=== PATIENT | male | born 1940 | race Caucasian/White ===

== ENCOUNTER → 2019-04-08 | Outpatient (CLI) | payer OTHER ==
[~2019-04-08] MED LIST: ABAT250V; AMLO10 PO; Aspir 8181 MG PO; CENTRUM SILVER1 EAC4 PO; FISH1000 PO; Folic Acid-Vit1 EACH PO; LISI20; Lutein6 MG PO
[2019-04-09 14:58] LABS: Stool Occult Bld Immuno 1 Negative (NEGATIVE)
== END | disposition home or self-care (01) ==
LOC: LAB SHORT 13:08 → LAB SRC 13:08
PROVIDERS: Internal Medicine Gastroenterology
DX: Z80.0 Family history of malignant neoplasm of digestive organs (principal)
CPT/HCPCS: 82274

== ENCOUNTER 2019-12-12 03:03 | Inpatient (IN) | payer OTHER ==
[~2019-12-12] VITALS: Ht 177.8 cm; Wt 104.3 kg
[2019-12-12 04:20] LABS: Alanine Aminotransfer (ALT/SGP 35 U/L (12-78); Albumin, Blood 3.6 g/dL (3.4-5.0); Albumin/Globulin Ratio 1.1 (0.8-1.8); Alk Phos 68 U/L (50-136); Anion Gap 8 mmol/L (6-16); Aspartate Aminotrans (AST/SGOT 18 U/L (12-37); Bilirubin, Total 0.5 mg/dL (0.1-1.0); Blood Urea Nitrogen 13 mg/dL (8-24); CO2, Blood 22 mmol/L (21-32); Calcium, Blood 8.5 mg/dL (8.5-10.1); Chloride, Blood 105 mmol/L (98-108); Creatinine, Blood 0.87 mg/dL (0.60-1.20); Globulin, Blood 3.4 g/dL (2.2-4.0); Glomerular Filtration Rate >60 (60-); Glucose, Blood 105 mg/dL (70-99); Potassium, Blood 4.3 mmol/L (3.5-5.5); Sodium, Blood 135 mmol/L (136-145); Troponin I <0.015 ng/mL (0.000-0.040)
[2019-12-12 04:29] LABS: Hematocrit 47.3 % (37.0-53.0); Hemoglobin 16.3 g/dL (13.5-17.5); Mean Corpuscular HGB 29.9 pg (26.0-34.0); Mean Corpuscular HGB Conc 34.5 g/dL (31.5-36.5); Mean Corpuscular Volume 87 fL (80-100); Mean Platelet Volume 9.7 fL (9.1-12.4); Platelet Count 129 K/mm3 (150-400); RDW Coefficient Variation 13.2 % (11.7-14.2); RDW Standard Deviation 41.7 fL (35.1-46.3); Red Blood Cell Count 5.46 M/mm3 (4.30-5.90); White Blood Cell Count 17.68 K/mm3 (4.00-11.30)
[2019-12-12 05:08] LABS: BAND PERCENT MAN 15 % (0-8); BASOPHILS PERCENT MAN 0 % (0-2); EOSINOPHILS PERCENT MAN 0 % (0-6); LYMPHOCYTES ABSOLUTE MAN 0.17 K/mm3 (0.84-5.20); LYMPHOCYTES PERCENT MAN 1 % (21-46); MONOCYTES PERCENT MAN 4 % (4-13); NEUTROPHILS ABSOLUTE MAN 16.79 K/mm3 (1.96-9.15); SEG NEUTROPHILS PERCENT MAN 80 % (41-73); TOTAL CELLS COUNTED 100
[2019-12-12] MEDS ORDERED: CLOP75 PO (08:57)
[2019-12-12] MEDS ORDERED: Crestor40 MG PO (08:58)
[2019-12-12] MEDS ORDERED: IRBE150 PO (08:59)
[2019-12-12] MEDS ORDERED: Lutein6 MG PO (09:01)
[2019-12-12] MEDS ORDERED: [UNRECOGNIZED DRUG - OTHER] PO (09:02)
[2019-12-12] MEDS ORDERED: CENTRUM SILVER1 EAC2 PO (09:02)
--- NOTE | 2019-12-12 16:42 | NUR ---
Shift summary Patient has denied pain. Patient has been 93-97% on room air today. Patient denies shortness of breath or chest pain. Patient having loose stools. Hat placed in toilet to collect sample. Awaiting COVID result. Patient is independent in the room. Patient tolerating regular diet. Call light within patient reach.
[2019-12-12 22:37] LABS: Adenovirus F 40/41 Not Detected (NOT DETECT); Astrovirus Not Detected (NOT DETECT); Campylobacter Sp Not Detected (NOT DETECT); Cryptosporidium Not Detected (NOT DETECT); Cyclospora Cayetanensis Not Detected (NOT DETECT); E. Coli O157 Not Detected (NOT DETECT); Entamoeba Histolytica Not Detected (NOT DETECT); Enteroaggregative E. coli-EAEC Not Detected (NOT DETECT); Enteropathogenic E. coli-EPEC Not Detected (NOT DETECT); Enterotoxigenic E. coli-ETEC Not Detected (NOT DETECT); Giardia Lamblia Not Detected (NOT DETECT); Norovirus GI/GII Not Detected (NOT DETECT); Plesiomonas Shigelloides Not Detected (NOT DETECT); Rotavirus A Not Detected (NOT DETECT); Salmonella Sp Not Detected (NOT DETECT); Sapovirus Not Detected (NOT DETECT); Shiga Toxin-prod E. coli-STEC Not Detected (NOT DETECT); Shigella/Enteroin E. coli-EIEC Not Detected (NOT DETECT); Vibrio Cholerae Not Detected (NOT DETECT); Vibrio Sp Not Detected (NOT DETECT); Yersinia Enterocolitica Not Detected (NOT DETECT)
--- NOTE | 2019-12-13 04:30 | NUR ---
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
[2019-12-13 05:01] LABS: BASOPHILS ABSOLUTE AUTO 0.01 K/mm3 (0.00-0.23); BASOPHILS PERCENT AUTO 0 % (0-2); EOSINOPHILS ABSOLUTE AUTO 0.05 K/mm3 (0.00-0.68); EOSINOPHILS PERCENT AUTO 0 % (0-6); Hematocrit 42.9 % (37.0-53.0); Hemoglobin 14.5 g/dL (13.5-17.5); IMMATURE GRAN ABSOLUTE AUTO 0.05 K/mm3 (0.00-0.10); IMMATURE GRAN PERCENT AUTO 0 % (0-1); LYMPHOCYTES ABSOLUTE AUTO 0.72 K/mm3 (0.84-5.20); LYMPHOCYTES PERCENT AUTO 6 % (21-46); MONOCYTES ABSOLUTE AUTO 1.14 K/mm3 (0.16-1.47); MONOCYTES PERCENT AUTO 10 % (4-13); Mean Corpuscular HGB 29.6 pg (26.0-34.0); Mean Corpuscular HGB Conc 33.8 g/dL (31.5-36.5); Mean Corpuscular Volume 88 fL (80-100); Mean Platelet Volume 10.2 fL (9.1-12.4); NEUTROPHILS ABSOLUTE AUTO 9.54 K/mm3 (1.96-9.15); NEUTROPHILS PERCENT AUTO 83 % (41-73); Platelet Count 115 K/mm3 (150-400); RDW Coefficient Variation 13.3 % (11.7-14.2); RDW Standard Deviation 42.7 fL (35.1-46.3); White Blood Cell Count 11.51 K/mm3 (4.00-11.30)
[2019-12-13 05:28] LABS: Alanine Aminotransfer (ALT/SGP 26 U/L (12-78); Albumin/Globulin Ratio 0.9 (0.8-1.8); Alk Phos 52 U/L (50-136); Anion Gap 7 mmol/L (6-16); Aspartate Aminotrans (AST/SGOT 22 U/L (12-37); Bilirubin, Total 0.7 mg/dL (0.1-1.0); Blood Urea Nitrogen 11 mg/dL (8-24); Bun/Creatinine Ratio 12.8 (12.0-20.0); CO2, Blood 24 mmol/L (21-32); Calcium, Blood 8.3 mg/dL (8.5-10.1); Chloride, Blood 102 mmol/L (98-108); Creatinine, Blood 0.86 mg/dL (0.60-1.20); Globulin, Blood 3.4 g/dL (2.2-4.0); Glomerular Filtration Rate >60 (60-); Glucose, Blood 108 mg/dL (70-99); Potassium, Blood 3.9 mmol/L (3.5-5.5); Sodium, Blood 133 mmol/L (136-145); Total Protein, Blood 6.4 g/dL (6.4-8.2)
[2019-12-13] MEDS ORDERED: ALBU90OI INH (13:38)
[2019-12-13] MEDS ORDERED: CEFD300 PO (13:39)
[2019-12-13] MEDS ORDERED: AZIT500 PO (13:39)
--- NOTE | 2019-12-13 14:04 | NUR ---
Discharge summary Patient discharged to home. IV out. Prescriptions faxed to [facility]. Patient/spouse denied questions or concerns at discharge. Patient to follow up with PCP.
== END 2019-12-13 14:20 | disposition home or self-care (01) | DRG 871 ==
LOC: ER 03:03 → MEDS 06:40 → SURS 06:40
PROVIDERS: Emergency Medicine; ADMIT Internal Medicine
DX: A41.9 Sepsis, unspecified organism (principal); J18.9 Pneumonia, unspecified organism; J96.01 Acute respiratory failure with hypoxia; J44.1 Chronic obstructive pulmonary disease with (acute) exacerbation; J44.0 Chronic obstructive pulmonary disease with (acute) lower respiratory infection; I10 Essential (primary) hypertension; Z20.828 Contact with and (suspected) exposure to other viral communicable diseases; I25.2 Old myocardial infarction; Z95.1 Presence of aortocoronary bypass graft; Z79.82 Long term (current) use of aspirin; Z87.891 Personal history of nicotine dependence
CPT/HCPCS: 0097U; 36415; 71046; 80053; 83605; 83880; 84484; 85025; 87040; 93005; 93010; 94664; 94667; 94760; 96361; 96365; 98960; 99285-25; A9270; J0456; J0696; J1650; J1956; J7030; J7050; U0003

== ENCOUNTER 2020-10-16 15:46 | Inpatient (IN) | payer MEDICARE, OTHER ==
[~2020-10-16] VITALS: Ht 177.8 cm; Wt 97.5 kg
[~2020-10-16 15:46] MED LIST changes: +ALBU90OI INH; -AMLO10 PO; +AZIT500 PO; -Aspir 8181 MG PO; +CEFD300 PO; +CENTRUM SILVER1 EAC2 PO; +IRBE150 PO; +[UNRECOGNIZED DRUG - OTHER] PO
[2020-10-16 16:12] LABS: BASOPHILS ABSOLUTE AUTO 0.02 K/mm3 (0.00-0.23); BASOPHILS PERCENT AUTO 0 % (0-2); EOSINOPHILS ABSOLUTE AUTO 0.02 K/mm3 (0.00-0.68); EOSINOPHILS PERCENT AUTO 0 % (0-6); Hematocrit 47.4 % (37.0-53.0); Hemoglobin 16.4 g/dL (13.5-17.5); IMMATURE GRAN ABSOLUTE AUTO 0.08 K/mm3 (0.00-0.10); IMMATURE GRAN PERCENT AUTO 1 % (0-1); LYMPHOCYTES ABSOLUTE AUTO 0.48 K/mm3 (0.84-5.20); LYMPHOCYTES PERCENT AUTO 3 % (21-46); MONOCYTES PERCENT AUTO 1 % (4-13); Mean Corpuscular HGB 30.2 pg (26.0-34.0); Mean Corpuscular HGB Conc 34.6 g/dL (31.5-36.5); Mean Corpuscular Volume 87 fL (80-100); Mean Platelet Volume 9.8 fL (9.1-12.4); NEUTROPHILS ABSOLUTE AUTO 14.79 K/mm3 (1.96-9.15); NEUTROPHILS PERCENT AUTO 95 % (41-73); Platelet Count 154 K/mm3 (150-400); RDW Coefficient Variation 13.2 % (11.7-14.2); RDW Standard Deviation 42.4 fL (35.1-46.3); Red Blood Cell Count 5.43 M/mm3 (4.30-5.90); White Blood Cell Count 15.59 K/mm3 (4.00-11.30)
[2020-10-16 16:28] LABS: Alanine Aminotransfer (ALT/SGP 267 U/L (12-78); Albumin, Blood 4.1 g/dL (3.4-5.0); Albumin/Globulin Ratio 1.1 (0.8-1.8); Alk Phos 150 U/L (50-136); Anion Gap 9 mmol/L (6-16); Aspartate Aminotrans (AST/SGOT 308 U/L (12-37); Bilirubin, Total 2.3 mg/dL (0.1-1.0); Blood Urea Nitrogen 15 mg/dL (8-24); Bun/Creatinine Ratio 17.5 (12.0-20.0); CO2, Blood 24 mmol/L (21-32); Calcium, Blood 9.3 mg/dL (8.5-10.1); Chloride, Blood 94 mmol/L (98-108); Creatinine, Blood 0.86 mg/dL (0.60-1.20); Globulin, Blood 3.8 g/dL (2.2-4.0); Glomerular Filtration Rate >60 (60-); Glucose, Blood 145 mg/dL (70-99); Potassium, Blood 4.1 mmol/L (3.5-5.5); Sodium, Blood 127 mmol/L (136-145); Total Protein, Blood 7.9 g/dL (6.4-8.2)
[2020-10-16] MEDS ORDERED: MUPIROCIN (17:47)
[2020-10-16] MEDS ORDERED: FUROSEMIDE20 MG PO (17:47)
[2020-10-16] MEDS ORDERED: AMLO10 PO (17:47)
[2020-10-16] MEDS ORDERED: CLOP75 PO (17:47)
[2020-10-16] MEDS ORDERED: Crestor40 MG PO (17:48)
[2020-10-16] MEDS ORDERED: METFORMIN HCL500 M2 PO (17:48)
[2020-10-16] MEDS ORDERED: Aspir 8181 MG PO (17:49)
[2020-10-16] MEDS ORDERED: LOSA50 PO (17:49)
[2020-10-17 03:52] LABS: Hematocrit 39.1 % (37.0-53.0); Hemoglobin 13.9 g/dL (13.5-17.5); Mean Corpuscular HGB 30.5 pg (26.0-34.0); Mean Corpuscular HGB Conc 35.5 g/dL (31.5-36.5); Mean Corpuscular Volume 86 fL (80-100); Mean Platelet Volume 10.2 fL (9.1-12.4); Platelet Count 109 K/mm3 (150-400); RDW Coefficient Variation 13.4 % (11.7-14.2); Red Blood Cell Count 4.55 M/mm3 (4.30-5.90); White Blood Cell Count 28.96 K/mm3 (4.00-11.30)
[2020-10-17 04:12] LABS: Alanine Aminotransfer (ALT/SGP 506 U/L (12-78); Albumin, Blood 3.1 g/dL (3.4-5.0); Alk Phos 105 U/L (50-136); Anion Gap 9 mmol/L (6-16); Aspartate Aminotrans (AST/SGOT 421 U/L (12-37); Bilirubin, Total 4.9 mg/dL (0.1-1.0); Blood Urea Nitrogen 21 mg/dL (8-24); Bun/Creatinine Ratio 19.4 (12.0-20.0); CO2, Blood 22 mmol/L (21-32); Calcium, Blood 8.4 mg/dL (8.5-10.1); Chloride, Blood 98 mmol/L (98-108); Creatinine, Blood 1.08 mg/dL (0.60-1.20); Glomerular Filtration Rate >60 (60-); Glucose, Blood 112 mg/dL (70-99); Potassium, Blood 4.6 mmol/L (3.5-5.5); Sodium, Blood 129 mmol/L (136-145); Total Protein, Blood 6.1 g/dL (6.4-8.2)
[2020-10-17 04:14] LABS: BAND PERCENT MAN 19 % (0-8); BASOPHILS PERCENT MAN 0 % (0-2); EOSINOPHILS PERCENT MAN 0 % (0-6); LYMPHOCYTES ABSOLUTE MAN 0.57 K/mm3 (0.84-5.20); LYMPHOCYTES PERCENT MAN 2 % (21-46); MONOCYTES ABSOLUTE MAN 1.15 K/mm3 (0.16-1.47); MONOCYTES PERCENT MAN 4 % (4-13); NEUTROPHILS ABSOLUTE MAN 27.22 K/mm3 (1.96-9.15); SEG NEUTROPHILS PERCENT MAN 75 % (41-73); TOTAL CELLS COUNTED 100
--- NOTE | 2020-10-17 06:28 | NUR ---
SHIFT SUMMARY PT WAS A NEW ADMIT, ARRIVING ON THE FLOOR AT . HE IS A&O X 4, SBA IN THE ROOM. PT DENIED ANY ACUTE SOB, PAIN, OR NAUSEA. PT ON 2L OF O2 VIA NC, SATTING > 92%. PT TEMP WAS ELEVATED AT 100.1, MEDICATED WITH PRN TYLENOL. VITAL SIGNS OTHERWISE STABLE. PT RECEIVED 1L LR @ 100 ML/HR. LACTIC WAS CRITICAL AT 3.6. HOSPITALIST INFORMED, AND ADDITIONAL LACTIC CHECKED AT 0500. NO OTHER CHANGES IN ORDERS. PT HAD POSITIVE BLOOD CULTURES, GRAM - BACILLI. PT IS ON IV ROCEPHIN, WHICH PER PHARMACIST IS ADEQUATE COVERAGE. NO OTHER ACUTE CHANGES IN PT CONDITION NOTED. WILL CONTINUE TO MONITOR AND TREAT PER EMAR UNTIL HAND OFF TO DAY SHIFT RN.
--- NOTE | 2020-10-17 16:45 | NUR ---
PT AOX4 AND COOPERATIVE OF CARE. PT INDEPENDENT IN ROOM. PT STATED HE HAD A HEADACHE EARLIER IN THE SHIFT AND WAS TREATED PER EMAR. PT STATED THIS WAS EFFECTIVE. PT WANTED TO DISCHARGE AND DR BELTRE REVIEWED LABS AND PT WAS INFORMED HE NEEDED IV ANTIBOTICS. PT WAS OKAY WITH THIS HE WANTS THE TREATMENT HE NEEDS TO GET BETTER. PT HAS CALL LIGHT WITHIN REACH AND CALLS APPROPRIATELY. NO DISTRESS NOTED AT THIS TIME WILL CONTINUE TO MONITOR.
--- NOTE | 2020-10-18 05:36 | NUR ---
Alert and orientated, able to make needs known, call light within reach, patient is indendpent to restroom, slept throughout the night no events.
[2020-10-18] MEDS ORDERED: CEFP200 PO (16:14)
[2020-10-18] MEDS ORDERED: XARELTO10 M5 PO (16:14)
--- NOTE | 2020-10-18 17:34 | NUR ---
DISCHARGE SUMMARY PT DISCHARGE THIS SHIFT AT 1730. PT's DAUGHTER PRESENT DURING DISCHARGE PROCESS. PT AND FAMILY VERBALIZED UNDERSTANDING OF DISCHARGE ORDERS. NO COMPLAINTS OR ANY CONCERNS NOTED FROM PT, DENIES ANY PAIN OR DISCOMFORT PRIOR TO DISCHARGE. IV LINE DISCONTINUED PRIOR TO D/C. PT A&OX4, ABLE TO MAKE NEEDS KNOWN. DISCHARGE PAPERWORK GIVEN TO PATIENT UPON DISCHARGE.
== END 2020-10-18 17:32 | disposition home or self-care (01) | DRG 871 ==
LOC: ER 15:46 → MEDS 18:12
PROVIDERS: Emergency Medicine; Internal Medicine; ADMIT Internal Medicine
DX: A41.51 Sepsis due to Escherichia coli [E. coli] (principal); J18.9 Pneumonia, unspecified organism; J44.1 Chronic obstructive pulmonary disease with (acute) exacerbation; J44.0 Chronic obstructive pulmonary disease with (acute) lower respiratory infection; E87.2 Acidosis; E87.1 Hypo-osmolality and hyponatremia; D69.6 Thrombocytopenia, unspecified; R65.20 Severe sepsis without septic shock; I25.10 Atherosclerotic heart disease of native coronary artery without angina pectoris; R73.03 Prediabetes; I73.9 Peripheral vascular disease, unspecified; E78.5 Hyperlipidemia, unspecified; Q99.8 Other specified chromosome abnormalities; Z87.891 Personal history of nicotine dependence; Z90.49 Acquired absence of other specified parts of digestive tract; Z95.1 Presence of aortocoronary bypass graft; Z88.6 Allergy status to analgesic agent; Z79.82 Long term (current) use of aspirin; Z79.899 Other long term (current) drug therapy
CPT/HCPCS: 36415; 71045; 76705; 80053; 83605; 83690; 84145; 84484; 85025; 87040; 87077; 87186; 93005; 93010; 94667; 94760; 96361; 96365; 96366; 99285-25; A9270; G0480; J0696; J7030; J7120

== ENCOUNTER 2021-11-23 07:58 | Day surgery (SDC) | payer OTHER ==
[~2021-11-23] VITALS: Ht 177.8 cm; Wt 93.9 kg
[~2021-11-23 07:58] MED LIST changes: +AMLO10 PO; +Aspir 8181 MG PO; +CEFP200 PO; +CLOP75 PO; +Crestor40 MG PO; +FUROSEMIDE20 MG PO; +LOSA50 PO; +METFORMIN HCL500 M2 PO; +MULTI-VITAMIN1 EAC2 PO; +MUPIROCIN; +Vitamin B Comple1 EA PO; +XARELTO10 M5 PO
--- NOTE | 2021-11-23 09:22 | NUR ---
11/23/21 0922 Kathe Steele HISTORY, CHART, MEDICATIONS AND ALLERGIES REVIEWED BEFORE START OF PROCEDURE. PATIENT CONFIRMS NPO STATUS AND AGREES WITH SCHEDULED PROCEDURE. 3-LEAD EKG REVIEWED WITH PHYSICIAN PRIOR TO START OF PROCEDURE. MONITOR INTACT WITH CONTINUOUS PULSE OXIMETRY,CAPNOGRAPHY, 3-LEAD EKG, INTERMITTENT BP. SUPPLEMENTAL O2 TO BE TITRATED THROUGHOUT PROCEDURE TO MAINTAIN O2 SATURATION ABOVE 90%. PATIENT DETERMINED TO BE ASA APPROPRIATE FOR PROPOFOL SEDATION PRIOR TO START OF PROCEDURE BY DR. OVERTON
--- NOTE | 2021-11-23 10:13 | NUR ---
Discharge instructions reviewed with patient. Patient verbalizes understanding. Copy given to patient to take home. Patient States Post-Procedure ride home has been arranged. Discharged via wheelchair to private car for ride home.
== END 2021-11-23 10:19 | disposition home or self-care (01) ==
LOC: ORSCMMR 07:58 → ORD 09:15 → ORSCMMR 09:15
PROVIDERS: Surgery
PROC: 0DBN8ZX Excision of Sigmoid Colon, Via Natural or Artificial Opening Endoscopic, Diagnostic (ICD-10-PCS; principal; 2021-11-23 09:15)
PROC: 0DBL8ZX Excision of Transverse Colon, Via Natural or Artificial Opening Endoscopic, Diagnostic (ICD-10-PCS; principal; 2021-11-23 09:15)
DX: Z12.11 Encounter for screening for malignant neoplasm of colon (principal); D12.3 Benign neoplasm of transverse colon; D12.5 Benign neoplasm of sigmoid colon; K57.30 Diverticulosis of large intestine without perforation or abscess without bleeding; K64.8 Other hemorrhoids; Z80.0 Family history of malignant neoplasm of digestive organs; I10 Essential (primary) hypertension; J44.9 Chronic obstructive pulmonary disease, unspecified; Z79.01 Long term (current) use of anticoagulants; Z79.84 Long term (current) use of oral hypoglycemic drugs; Z79.899 Other long term (current) drug therapy
CPT/HCPCS: 82947; 88305; J2704; J7120

== ENCOUNTER → 2021-12-02 | Outpatient (CLI) | payer OTHER | END | disposition home or self-care (01) | LOC: PLD 08:32 → LAB SHORT 08:32 | DX: D04.0 Carcinoma in situ of skin of lip (principal) | CPT/HCPCS: 88305 ==

== ENCOUNTER 2022-11-28 11:04 | Day surgery (SDC) | payer OTHER ==
[~2022-11-28] VITALS: Ht 172.7 cm; Wt 88.5 kg
[2022-11-28] VITALS (17 sets, daily range): BP systolic 101–153; BP diastolic 57–90
--- NOTE | 2022-11-28 12:21 | NUR ---
Ambulatory in Day Surgery. History, Chart, Medications and Allergies reviewed before start of procedure. Lungs clear T/O to Auscultation. Patient confirms NPO status and agrees with scheduled surgery. Pre-Op teaching done. Pt verbalizes understanding. PT BELONGINGS PLACED UNDERNEATH GURNEY FOR SAFEKEEPING. PT GLASSES TAKEN TO PACU FOR SAFEKEEPING.
--- NOTE | 2022-11-28 17:00 | NUR ---
ARRIVAL TO UNIT PLEASANT & UPBEAT. COMES TO UNIT IN HOSPITAL BED. ASSESSMENT CHARTED. DENIES N/V SO SNACKS & WATER GIVEN.
[2022-11-29 04:40] VITALS: BP 111/63
[2022-11-29 05:01] LABS: BASOPHILS ABSOLUTE AUTO 0.01 K/mm3 (0.00-0.23); BASOPHILS PERCENT AUTO 0 % (0-2); EOSINOPHILS PERCENT AUTO 0 % (0-6); Hematocrit 39.6 % (37.0-53.0); Hemoglobin 14.3 g/dL (13.5-17.5); IMMATURE GRAN ABSOLUTE AUTO 0.05 K/mm3 (0.00-0.10); IMMATURE GRAN PERCENT AUTO 0 % (0-1); LYMPHOCYTES ABSOLUTE AUTO 0.36 K/mm3 (0.84-5.20); LYMPHOCYTES PERCENT AUTO 3 % (21-46); MONOCYTES ABSOLUTE AUTO 0.68 K/mm3 (0.16-1.47); MONOCYTES PERCENT AUTO 6 % (4-13); Mean Corpuscular HGB Conc 36.1 g/dL (31.5-36.5); Mean Corpuscular Volume 86 fL (80-100); NEUTROPHILS ABSOLUTE AUTO 11.07 K/mm3 (1.96-9.15); NEUTROPHILS PERCENT AUTO 91 % (41-73); Platelet Count 115 K/mm3 (150-400); RDW Coefficient Variation 12.8 % (11.7-14.2); RDW Standard Deviation 39.8 fL (35.1-46.3); Red Blood Cell Count 4.61 M/mm3 (4.30-5.90); White Blood Cell Count 12.17 K/mm3 (4.00-11.30)
--- NOTE | 2022-11-29 05:20 | NUR ---
SHIFT SUMMARY POD 1, R TKA, AQUACELL C/D/I, POLAR PACK IN PLACE. A&OX4, UP TO BATHROOM AND AMB IN WILKS TO WINDOW/ BACK. PT HAS NOTICABLE TREMORS TO UPPER EXTREMITIES HE REPORTS BASELINE. PT MEDICATED W/ DILAUDID X2 AND GENESIS X1, PT REQUESTS IV PAIN MEDS W/ BETTER RESULTS. VSS, REPORTS PASSING GAS, URINATED X1 THIS SHIFT. DENIES N/V, N/T, OR SOB. CALL LIGHT W/IN REACH. PT PLANS FOR DISCHARGE TODAY FOLLOWING THERAPY EVAL/ TREAT.
[2022-11-29 05:44] LABS: Bun/Creatinine Ratio 20.5 (12.0-20.0); Calcium, Blood 8.7 mg/dL (8.5-10.1); Creatinine, Blood 0.63 mg/dL (0.60-1.20); Magnesium, Blood 1.8 mg/dL (1.6-2.4); Potassium, Blood 4.5 mmol/L (3.5-5.5)
[2022-11-29 07:26] VITALS: BP 118/72
[2022-11-29] MEDS ORDERED: ACET500 PO (08:35)
[2022-11-29] MEDS ORDERED: OXYC5 PO (08:36)
[2022-11-29] MEDS ORDERED: ASPI81CH PO (08:36)
--- NOTE | 2022-11-29 11:50 | NUR ---
DISCHARGE PT HAS CLEARED THERAPY. PAIN WELL CONTROLLED. EATING, DRINKING, & VOIDING WELL. [facility] SENT w/ PT. ESCORTED OUT VIA W/C.
--- NOTE | 2022-11-29 13:02 | NUR ---
11/29/22 1302 Kennedi Cole VERIFICATIONS: EDIT CHART.
== END 2022-11-29 11:50 | disposition home or self-care (01) ==
LOC: ORSCMMR 11:04 → ORD 13:30 → ORSCMMR 13:30 → SURS 16:39 → ORSCMMR 11-29 11:50
PROVIDERS: Orthopaedic Surgery
PROC: 0SRC0JA Replacement of Right Knee Joint with Synthetic Substitute, Uncemented, Open Approach (ICD-10-PCS; principal; 2022-11-28 13:30)
PROC: 8E0Y0CZ Robotic Assisted Procedure of Lower Extremity, Open Approach (ICD-10-PCS; principal; 2022-11-28 13:30)
DX: M17.11 Unilateral primary osteoarthritis, right knee (principal); Z96.652 Presence of left artificial knee joint; I25.10 Atherosclerotic heart disease of native coronary artery without angina pectoris; J44.9 Chronic obstructive pulmonary disease, unspecified; Z86.718 Personal history of other venous thrombosis and embolism; Z79.01 Long term (current) use of anticoagulants; E78.5 Hyperlipidemia, unspecified; I25.2 Old myocardial infarction; R73.03 Prediabetes; I10 Essential (primary) hypertension; Z79.899 Other long term (current) drug therapy; Z87.891 Personal history of nicotine dependence
CPT/HCPCS: 27447; 20985; S2900; 36415; 73560-RT; 80048; 82947; 83735; 85025; 94760; 97110; 97116; 97162; A9270; C1776; J0171; J0690; J0735; J1100; J1170; J1885; J2250; J2371; J2704; J2795; J3010; J7120

== ENCOUNTER → 2023-03-08 | Outpatient (CLI) | payer OTHER ==
[~2023-03-08] MED LIST changes: +ACET500 PO; +ASPI81CH PO; +OXYC5 PO
== END ==
LOC: LAB SHORT 12:15 → LAB 12:15
DX: L82.0 Inflamed seborrheic keratosis (principal)
CPT/HCPCS: 88305

== ENCOUNTER → 2024-12-25 | Outpatient (CLI) | payer OTHER ==
[2024-12-25 10:56] LABS: Sodium, Urine 59 mmol/L (20-110)
== END | disposition home or self-care (01) ==
LOC: LAB 07:00 → LAB SHORT 07:00
PROVIDERS: Physician Assistant
DX: E87.1 Hypo-osmolality and hyponatremia (principal)
CPT/HCPCS: 84300